=== PATIENT | female | born 1990 | race Hispanic/Latino ===

== ENCOUNTER 2017-12-04 09:20 | Day surgery (SDC) | payer OTHER ==
[2017-12-04 10:13] VITALS: BMI 48.2
[2017-12-04] MEDS ORDERED: Sodium Chloride For Inhalation 0.9% 3 ML NEB ONE (10:58)
[2017-12-04] MEDS ORDERED: Lidocaine 2% 10 ML INJ ONE (10:58)
[2017-12-04] MEDS ORDERED: Sodium Chloride 0.9% 0 ML ONE (10:58)
--- NOTE | 2017-12-04 11:01 | PDOC.LDHP ---
Labor and Delivery H&P Chief complaint: other (RUQ pain) HPI: 27 [id number] @ 24.5 WGA by 8.4 wk US presents with acute onset of RUQ and right flank pain that woke her up from sleep at 0430 this morning. States that the pain is constant, non-radiating, and a 6/10 at its worse. Aggravated by position changes such as sitting up or leg raises. She has not had much of an appetite today so is not sure if the pain worsens with eating. Admits to mild nausea but states that this is baseline for her during this ; denies vomiting, fevers, or chills. Denies hematuria, dysuria, increased frequency, or cloudy/foul smelling urine; however, she does state that over the past week, she has experienced mild, sharp pains in her lower back only with voiding. No sick contacts, no history of trauma. She still has both her gallbladder and appendix. No history of kidney stones or similar symptoms. She did have a UTI back in August that was treated but denies h/o recurrent UTIs. Denies VB, LOF , discharge, pelvic pain, or decreased movement. Of note, the patient has what sounds like persistent, uncontrolled asthma and has to use her inhaler at least 4x per day. States that over the past couple of weeks, she has had increased wheezing and cough. Last week, she took a 5 day course of prednisone that she had on hand at home with mild improvement of symptoms. No one currently manages her asthma; she is not currently on any long-acing inhaler, although she says that she has been tried on multiple different types of long acting inhalers in the past without any improvement in her symptoms. Current gestational age (weeks): 24 (5) Due date: 03/21/18 Dating criteria: first trimester ultrasound (8.4 wk) Grav: 4 Para: 1 Current complications: other (BMI 41) Abnormal US findings: No (per patient) Current medications: pre-giovani vitamins, other (albuterol inhaler) Previous surgical history: low tranverse CS (x1) Social history: none - Physical Exam General: NAD, resting Heart: RRR Lungs: nonlabored breathing Abdomen: other (TTP RUQ over lower ribs; Carnett's sign positive) Extremeties: no edema - OB Labs Blood type: O RH: positive Antibody Screen: negative HIV: negative RPR: negative HEPSAg: negative 1 hour GCT: unknown (not yet done) Rubella: immune - Assessment 27 yo F @ 24.5 wks by 1T US w/: - Plan -: 1) PTSIUP -continue routine care; no evidence of labor at this time 2) Pleuritic pain v. chostochondritis v. less likely nephrolithiasis or ascending UTI -UA pending; if negative, will likely be able to send home with conservative treatment (tylenol, ice/heat, IS?) and short f/u with [facility] next week -No evidence of an intra-abdominal process at this time; will defer further imaging for now and discuss return precautions prior to discharge 3) Uncontrolled asthma -Would recommend physician at [facility] or PCP start her on inhaled corticosteroid and /or singulair 4) BMI 41 5) ASCUS with HR HPV -will need f/u <Kofi Adams - Last Filed: 12/04/17 10:46> <Jerome Miller - Last Filed: 12/04/17 13:01> Allergies/Adverse Reactions: Allergies Allergy/AdvReac Type Severity Reaction Status Date / Time No Known Allergies Allergy Unverified 12/04/17 10:01 Attending Addendum - Attending Addendum Date/Time: 12/04/17 1300 I evaluated the patient and discussed the management with Dr. Adams. I agree with the History, Examination, Assessment and Plan. <Jerome Miller - Last Filed: 12/04/17 13:01>
[2017-12-04 11:04] LABS: Bilirubin Negative (Negative); Blood, Urine Negative (Negative); Clarity CLEAR (Clear); Glucose, Urine (Dipstick) Negative (Negative); Leukocyte Negative (Negative); Nitrite Negative (Negative); Protein, Urine (Dipstick) Negative (Neg-Trace); Specific Gravity, Urine 1.014 (1.002-1.036); Urobilinogen 0.2 mg/dL (0.2-1.0)
[2017-12-04 11:07] LABS: Bacteria/HPF Rare-Few HPF (None Seen); Hyaline Casts/LPF 0-3 HYALINE CAST LPF (0-3 Hyaline); Pathc Cast-AUWi Flag 0.14 (0-2.49); RBC/HPF 0-3 HPF (0-3); Squamous Epithelial 0-3 HPF (0-3); WBC/HPF 0-3 HPF (0-3)
== END 2017-12-04 12:04 | disposition home or self-care (01) ==
LOC: L&D/OP 09:20
PROVIDERS: ATTEND Obstetrics & Gynecology
DX: O99.89 Other specified diseases and conditions complicating pregnancy, childbirth and the puerperium (principal); R10.11 Right upper quadrant pain; O99.512 Diseases of the respiratory system complicating pregnancy, second trimester; J45.30 Mild persistent asthma, uncomplicated; O34.42 Maternal care for other abnormalities of cervix, second trimester; R87.610 Atypical squamous cells of undetermined significance on cytologic smear of cervix (ASC-US); Z79.899 Other long term (current) drug therapy; Z3A.24 24 weeks gestation of pregnancy
CPT/HCPCS: 81001; 99282

== ENCOUNTER 2018-03-07 21:21 | Day surgery (SDC) | payer OTHER ==
[2018-03-07 21:57] VITALS: BP 134/58; TEMP 99; BMI 53.8
--- NOTE | 2018-03-08 01:46 | PRG ---
OB ED NOTE DATE OF SERVICE: 03/07/2018 TIME OF SERVICE: 2300 hours PRESENTING COMPLAINT: Abdominal pain. HISTORY OF PRESENT ILLNESS: Ms. Foy is a 27-year-old 4, para 1, AB 2 with EDC of 03/21, pl acing her at 38 weeks gestation with previous . She presents reporting abdominal pain that is rather constant in nature. No bleeding, active fetus, and no rupture of membranes. She is seen a t the Clinic by the [employer]. 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 She denies gestational diabetes or any complications with this . She is uncertain about a trial of labor. Antepartum labs are not on her record on the unit. PAST MEDICAL HISTORY: Obesity. PAST SURGICAL HISTORY: . ALLERGIES: Denies. MEDICATIONS: vitamins. SOCIAL HISTORY: Denies tobacco, alcohol, or drug use. FAMILY HISTORY: Noncontributory. REVIEW OF SYSTEMS: Noncontributory. PHYSICAL EXAMINATION: GENERAL: A female, greater than 350 pounds. VITAL SIGNS: Blood pressure 118/72, temperature 98.5, respirations 18. HEENT: Within normal limits. LUNGS: Clear to auscultation bilaterally. HEART: Regular rhythm. ABDOMEN: Soft and nontender without palpable contractions. PELVIC: Vulva is without lesions. Vagina discharge. Cervix is closed, long, and high. EXTREMITIES: Without clubbing, cyanosis, or edema. heart rate monitoring was carried out for greater than an hour while heart rate could not be obtained for the entire time continuously secondary to the patient's morbid obesity. Greater leo n 20 minutes of heart rate tracing was obtained, which revealed a reactive category 1 tracing. No contractions were noted. IMPRESSION: Discomforts of . No evidence of active labor at 38 weeks gestation, previous C -section x1, morbid obesity, and uncertain plans for trial of labor after . PLAN: Patient will be discharged home. She is to keep scheduled follow up in 2 days at [facility] with ER precautions.
== END 2018-03-07 23:10 | disposition home or self-care (01) ==
LOC: L&D/OP 21:21
PROVIDERS: ATTEND Obstetrics & Gynecology
DX: O99.89 Other specified diseases and conditions complicating pregnancy, childbirth and the puerperium (principal); R10.9 Unspecified abdominal pain; O99.213 Obesity complicating pregnancy, third trimester; E66.01 Morbid (severe) obesity due to excess calories; Z68.43 Body mass index [BMI] 50.0-59.9, adult; Z79.899 Other long term (current) drug therapy; Z3A.38 38 weeks gestation of pregnancy

== ENCOUNTER 2018-03-16 07:45 | Inpatient (IN) | payer MEDICAID, OTHER ==
--- NOTE | 2018-03-15 17:48 | PDOC.LDHP ---
Labor and Delivery H&P Chief complaint: scheduled section (repeat) HPI: 27 yo @ 39.2wks presents for a repeat section. Denies VB, LOF, discharge. Endorses good movement. Current gestational age (weeks): 39 (39.2wks) Due date: 03/21/18 Dating criteria: first trimester ultrasound (8.4wk sono) Grav: 4 Para: 1 (1021) OB History Details: 12/14/2009 42 wks CS [facility] for late term. 7 lbs 10 ounces female. Vertical skin incision. Unknown uterine incision. Abnormal US findings: No (Hadlock 91% (~8 lbs) on 03/02/2018 with anterior placenta) Past Medical History: Asthma Hx of chlamydia on 1T labs treated with JUNA negative. Morbid obesity (BMI 54) ASCUS, HR HPV + Glucose Intolerance, normal 3h GTT Current medications: pre- vitamins, other (albuterol inh prn) Previous surgical history: other (prior CS, unknown uterine incision) Social history: none - Physical Exam Vital signs reviewed and normal: yes General: NAD Heart: RRR Lungs: CTAB Abdomen: gravid Extremeties: no edema FHT: category 1 - OB Labs Blood type: O RH: positive Antibody Screen: negative HIV: negative RPR: negative HEPSAg: negative 1 hour GCT: positive 3 hour GTT: normal GBS: negative Rubella: immune Additional Labs: Hep C negative Quant Gold negative TSH 1.4 Hba1c 4.7 - Assessment L&D Assessment: scheduled repeat section A/P: 27 yo @ 39.2wks admitted for repeat scheduled section. 1.)sIUP-admit for repeat CS. Obtain consent. Consult anesthesia. Pt has documented anterior placenta and female fetus measuring @ 91% by hadlock on 03/02. Obtain labs and ancef prior to section. 2.)Morbid obesity 3.)Prior CS-skin incision vertical, unknown hysterotomy 4.)Hx of chlamydia, treated, with JUAN negative 5.)Glucose intolerance-failed 1 Hr, 3H GTT wnl - Plan Plan: to OR for section, informed consent obtained, anesthesia consult for pain management <Razia Ibarra - Last Filed: 03/16/18 08:52> <Pradeep,Kenneth A - Last Filed: 03/16/18 12:18> Allergies/Adverse Reactions: Allergies Allergy/AdvReac Type Severity Reaction Status Date / Time No Known Allergies Allergy Verified 03/16/18 08:59 Attending Addendum - Attending Addendum Date/Time: 03/16/18 1217 I personally evaluated the patient and discussed the management with Dr. Sanchez and Raad. I agree with the History, Examination, Assessment and Plan documented above with any addition or exceptions noted below. <Kenneth Fernández A - Last Filed: 03/16/18 12:18>
[~2018-03-16 07:45] MED LIST: Bicitra 30 ML UDCUP PO SCH; CEFAZOLIN/Water 2 GM/20 ML SYRINGE SLOW IVP SCH; Ondansetron HCl/PF 4 MG/2 ML Vial IVP PRN; Promethazine HCl 25 MG/ML VIAL IM PRN
[2018-03-16] MEDS ORDERED: PROVENTIL INHALER 6.7 G (200 INHALATIONS) INH PRN (08:15)
[2018-03-16 08:35] LABS: Hemoglobin 13.9 g/dL (12.0-16.0); Mean Corpuscular HGB CONC 34.7 g/dL (32.0-36.0); Mean Corpuscular Volume 83.5 fL (78.0-98.0); Mean Platelet Volume 7.8 fL (7.4-10.4); Platelet Count 218 thou/uL (130-400); RBC Distribution Width 14.4 % (11.5-14.5); White Blood Cell (WBC) Count 10.8 thou/uL (4.8-10.8)
[2018-03-16 08:59] VITALS: BMI 51.4
[2018-03-16 09:13] LABS: Syphilis Antibody Nonreactive (Nonreactive); Syphilis Antibody Index 0.09 S/CO (<1.00 Non-Reactive)
[2018-03-16 09:14] LABS: HBSAg Index 0.14 S/CO (0-0.99); Hep B Surf Ag Non-Reactive S/CO (NonReactive)
[2018-03-16] MEDS ORDERED: Morphine PF 1 MG/ML SYR ONE (09:19)
[2018-03-16] MEDS ORDERED: Oxytocin 10 UNITS/ML VIAL ONE (09:21)
[2018-03-16] MEDS ORDERED: Lidocaine 1% PF 5 ML VIAL ONE ×2 (09:21→10:00)
[2018-03-16] MEDS ORDERED: ePHEDrine/0.9% NaCl/PF SYRINGE 50 mg/10 ml ONE (09:21)
[2018-03-16] MEDS ORDERED: Bupivacaine 0.75% W/DEXTROSE 8.25% 2 ML AMP ONE (09:21)
[2018-03-16] MEDS ORDERED: PHENYLEPHRINE-NS 100 MCG/ML 10 ML SYRINGE ONE (09:21)
[2018-03-16] MEDS ORDERED: Lidocaine 2% PF Inj 2 ML VIAL ONE (09:21)
[2018-03-16] MEDS ORDERED: Ketorolac Tromethamine 30 MG/ML VIAL ONE (09:21)
[2018-03-16] MEDS ORDERED: Ondansetron HCl/PF 4 MG/2 ML Vial ONE (09:25)
[2018-03-16] MEDS ORDERED: diphenhydrAMINE 50 MG/ML VIAL IVP PRN (10:25)
[2018-03-16] MEDS ORDERED: Naloxone HCl 0.4 mg/ml Vial IVP PRN ×2 (10:25)
[2018-03-16] MEDS ORDERED: Naloxone HCl 0.4 mg/ml Vial IV PRN (10:25)
[2018-03-16] MEDS ORDERED: Promethazine HCl 25 MG/ML VIAL IM PRN (10:25)
[2018-03-16] MEDS ORDERED: Ketorolac Tromethamine 30 MG/ML VIAL IVP PRN (10:25)
[2018-03-16] MEDS ORDERED: Eucerin (Mineral Oil/Petrolatum,White) 30 gm Jar TOP PRN (10:25)
[2018-03-16] MEDS ORDERED: Ondansetron HCl/PF 4 MG/2 ML Vial IVP PRN (10:25)
[2018-03-16] MEDS ORDERED: Promethazine HCl 25 MG SUPP PR PRN (10:25)
[2018-03-16] MEDS ORDERED: Communication Order-Pharmacy FS SCH (10:30)
[2018-03-16] MEDS ORDERED: Fentanyl 100 MCG/2 ML VIAL ONE (10:38)
[2018-03-16] MEDS ORDERED: Sodium Chloride 0.9% 10 ML ONE (10:40)
[2018-03-16] MEDS ORDERED: Promethazine HCl 25 MG/ML VIAL ONE (10:40)
[2018-03-16] MEDS: Prenatal Vitamin 1 TAB PO SCH (10:45)
[2018-03-16] MEDS ORDERED: Lanolin Ointment 7 GM TUBE TOP PRN (13:57)
[2018-03-16] MEDS ORDERED: diphenhydrAMINE 25 MG CAP PO PRN (13:57)
[2018-03-16] MEDS: Ibuprofen 800 MG TAB PO SCH ×2 (14:23→23:59)
[2018-03-16] MEDS ORDERED: NS / Oxytocin 40 units/1000ml 1,000 ML IV SCH (14:30)
--- NOTE | 2018-03-16 15:33 | PDOC.EVN ---
Event Note - Event Note Event Note: Evaluated the patient 5 hours post-op. S: Patient reports that she has regained the feeling in her abdomen and legs. She reports some pain when she moves, but otherwise her pain is minimal. She reports some vaginal bleeding. She denies any CP, SOB. She ate some clear liquids for lunch and tolerated that without any nausea or vomiting. She has not ambulated yet and still has the hanley in place. O: Gen - alert, oriented, NAD Abd: fundus firm 2 cm below the umbilicus, appropriately TTP. Skin: dressing in place over incision, c/d/i Ext: SCD's in place, no edema A/P: 1. TIUP delivered via rLTCS, POD#0 -continue routine post- care. -Ibuprofen and norco for pain control -Encourage ambulation once tolerated -d/c hanley once ambulating -Tolerating clears, ADAT
--- NOTE | 2018-03-16 19:30 | PDOC.OPDEL ---
OB Operative/Delivery Note - Additional Findings/Plan Compilations/Other Findings: Resident Surgeon: Fred Shankar Tile Professional Surgeon: Laura Attending Surgeon: Pradeep Procedure: Repeat low transverse caesarean section Preoperative Diagnosis: 1)Term intrauterine 2)Previous 3)Morbid Obesity Postoperative Diagnosis: 1)Term intrauterine 2)Previous 3)Morbid Obesity Anesthesia: spinal Indications: The patient is a 27 year old G4,P1021 female at 39.2wks gestation who presents for a repeat scheduled . Procedure in Detail: After risks, benefits, and alternatives were explained to the patient, she gave informed consent. Pre-operative antibiotics included Cefazolin 2 gram IV. The patient was taken to the operating room and spinal anesthesia was initiated. She was placed in the supine position with a left tilt and prepped and draped in usual sterile fashion. A Pfannenstiel incision was made with a scalpel and carried down to the level of the fascia which was sharply nicked. The fascial cut was extended bilaterally with Leyva sissors. The inferior and superior edges of the cut fascial edges were elevated with Orlando clamps and the underlying rectus muscles were sharply and bluntly dissected free. The recti were divided digitally and retracted manually. The peritoneum was entered bluntly and retracted manually. The Anthony Retractor was placed. A low transverse score was made with the scalpel and the uterus was entered in the midline with the scalpel. Clear fluid was seen. The hysterotomy was extended manually. The infant was noted to be vertex and was delivered by fundal pressure and found to have a nuchal cord X 2. Mouth and nares were bulb suctioned. Cord clamped and cut and grossly normal female was handed to waiting nurse. Placenta was manually extracted, found to be intact with 3 vessel cord and discarded. The endometrium was curetted with a dry lap. The uterus was closed with a running locking #1 Monocryl suture. A figure of eight stitch using 2-0 Chromic was provided at the left egde of the hysterotomy. Following this hemostasis was noted. The fascia was closed with a running non-locking 0-Vicryl suture. The subcutaneous tissue was irrigated and there were no bleeders. The subcutaneous tissue was closed with a running nonlocking 2-0 plain suture. The skin was approximated with robin and a pressure dressing was placed. All counts were correct. The patient tolerated the procedure well and was taken to the recovery room in stable condition. Estimated Blood Loss: 738 ml Complications: None Findings: Grossly normal female infant with Apgars of 8 and 9. Grossly normal placenta with 3 vessel cord discarded. Drains: Barnes to gravity draining clear urine with UOP: 500ml
[2018-03-16] MEDS ORDERED: HYDROcodone/Acetaminophen 5/325 mg Tablet PO PRN (22:30)
[2018-03-16] MEDS: Docusate Calcium (SURFAK) 240 MG CAP PO SCH (23:57)
[2018-03-16] MEDS: Ferrous Sulfate 325 MG TAB PO SCH (23:57)
[2018-03-17] MEDS: Simethicone Chewable 80 MG TAB PO PRN ×2 (00:24→17:10)
[2018-03-17 05:30] LABS: Hemoglobin 10.7 g/dL (12.0-16.0); Mean Corpuscular HGB CONC 34.2 g/dL (32.0-36.0); Mean Corpuscular Hemoglobin 28.9 pg (27.0-31.0); Mean Corpuscular Volume 84.7 fL (78.0-98.0); Mean Platelet Volume 8.1 fL (7.4-10.4); Platelet Count 179 thou/uL (130-400); RBC Distribution Width 14.3 % (11.5-14.5); Red Blood Cell (RBC) Count 3.69 mill/uL (4.20-5.40); White Blood Cell (WBC) Count 9.2 thou/uL (4.8-10.8)
--- NOTE | 2018-03-17 07:19 | PDOC.PP ---
Post Progress Note Post Day #: 1 Subjective: 27 yo now 2021 at 39.2wks s/p repeat LTCS yesterday at 1029, delivered a LGA female infant. Pt did well overnight. No acute events. Tolerating normal diet and ambulating this am. PO intake tolerated: yes Flatus: no Ambulation: no Vital Signs (12 hours) Temp Pulse Resp BP 03/17/18 04:20 99.0 F 86 20 108/54 L 03/17/18 02:00 20 03/17/18 00:15 98.9 F 99 18 107/55 L 03/16/18 22:20 20 03/16/18 20:30 97.6 F 85 20 121/60 Weight Weight 146.964 kg - Physical Examination General: NAD Cardiovascular: no m/r/g, RRR Respiratory: clear to auscultation bilaterally Abdominal: + bowel sounds, lochia, appropriately TTP Fundus firm & at: umbilicus Skin: CS incision dry & intact Neurological: no gross focal deficits Psychiatric: A&Ox3 Result Diagrams: 03/17/18 04:42 Additional Labs: Post Labs Blood Type O POSITIVE 03/16/18 08:12 Hep Bs Antigen Non-Reactive S/CO (NonReactive) 03/16/18 08:12 (1) Term delivered Code(s): O80 - ENCOUNTER FOR FULL-TERM UNCOMPLICATED DELIVERY Status: Acute (2) delivery, delivered, current hospitalization Code(s): O82 - ENCOUNTER FOR DELIVERY WITHOUT INDICATION Status: Acute (3) Obesity Code(s): E66.9 - OBESITY, UNSPECIFIED Status: Acute (4) Glucose intolerance Code(s): E74.39 - OTHER DISORDERS OF INTESTINAL CARBOHYDRATE ABSORPTION Status : Acute - Assessment/Plan 27 yo now 2021 s/p repeat LTCS yesterday @ 39.2wks 2/2 prior section. 1)term sIUP 2)s/p repeat CS 3)obesity 4)Glucose intolerance Plan: -Continue ibuprofen heladio and norco prn pain control -Encourage ambulation, ADAT, monitor I/Os -Incision, clean dry and intact; okay to remove pressure dressing -Consider dc tomorrow vs Wednesday with follow-up in two weeks. <Razia Ibarra - Last Filed: 03/17/18 07:35> Vital Signs (12 hours) Temp Pulse Resp BP 03/17/18 12:02 98.9 F 86 20 102/52 L 03/17/18 07:50 98.7 F 81 20 99/53 L Weight Weight 146.964 kg Result Diagrams: 03/17/18 04:42 Additional Labs: Post Labs Blood Type O POSITIVE 03/16/18 08:12 Hep Bs Antigen Non-Reactive S/CO (NonReactive) 03/16/18 08:12 <Kenneth Fernández - Last Filed: 03/17/18 17:16> Attending Addendum - Attending Addendum Date/Time: 03/17/18 0871 I personally evaluated the patient and discussed the management with Dr. Sanchez. I agree with the History, Examination, Assessment and Plan documented above with any addition or exceptions noted below. <Kenneth Fernández - Last Filed: 03/17/18 17:16>
[2018-03-17] MEDS ORDERED: Adacel (T-DAP) 0.5 ML VIAL IM ONE (09:00)
[2018-03-17] MEDS: Prenatal Vitamin 1 TAB PO SCH (09:24)
[2018-03-17] MEDS: Ibuprofen 800 MG TAB PO SCH ×3 (09:24→23:51)
[2018-03-17] MEDS: Docusate Calcium (SURFAK) 240 MG CAP PO SCH ×2 (09:24→21:41)
[2018-03-17] MEDS: HYDROcodone/Acetaminophen 5/325 mg Tablet PO PRN (09:25)
[2018-03-17] MEDS: Ferrous Sulfate 325 MG TAB PO SCH ×2 (09:28→21:48)
[2018-03-18] MEDS: HYDROcodone/Acetaminophen 5/325 mg Tablet PO PRN ×2 (05:07→16:01)
--- NOTE | 2018-03-18 07:12 | PDOC.PP ---
Post Progress Note Post Day #: 2 Subjective: 27 yo now 2022 s/p rLTCS on 03/17. No acute events overnight. Complains of gas pain this am. Says she passed flatus yesterday. Otherwise, pt is ambulating, tolerating normal diet, and pain is controlled. PO intake tolerated: yes Flatus: yes Ambulation: yes Vital Signs (12 hours) Temp Pulse Resp BP 03/18/18 04:50 98.3 F 83 20 114/57 L 03/18/18 00:10 97.7 F 92 20 114/54 L 03/17/18 20:15 98.0 F 84 20 129/58 L Weight Weight 146.964 kg - Physical Examination General: NAD Cardiovascular: no m/r/g, RRR Respiratory: clear to auscultation bilaterally Abdominal: + bowel sounds, lochia (minimal), appropriately TTP Fundus firm & at: umbilicus - 2 Skin: CS incision dry & intact, no rash Neurological: no gross focal deficits Result Diagrams: 03/17/18 04:42 Additional Labs: Post Labs Blood Type O POSITIVE 03/16/18 08:12 Hep Bs Antigen Non-Reactive S/CO (NonReactive) 03/16/18 08:12 (1) Term delivered Code(s): O80 - ENCOUNTER FOR FULL-TERM UNCOMPLICATED DELIVERY Status: Acute (2) delivery, delivered, current hospitalization Code(s): O82 - ENCOUNTER FOR DELIVERY WITHOUT INDICATION Status: Acute (3) Obesity Code(s): E66.9 - OBESITY, UNSPECIFIED Status: Acute (4) Glucose intolerance Code(s): E74.39 - OTHER DISORDERS OF INTESTINAL CARBOHYDRATE ABSORPTION Status : Acute - Assessment/Plan 27 yo now P2022 s/p rLTCS on 03/17 at 39.2wks. #Term, SIUP delivered #s/P rLTCS #Obesity #post op gas pains - scheduled simethacone qid and docusate bid. Continue routine care. Pt needs robin out possibly tomorrow. Encourage ambulation. Ibuprofen heladio and norco prn pain. <Razia Ibarra - Last Filed: 03/18/18 12:18> Vital Signs (12 hours) Temp Pulse Resp BP Pulse Ox 03/19/18 07:37 98.6 F 93 18 130/56 L 98 Weight Weight 146.964 kg Result Diagrams: 03/17/18 04:42 Additional Labs: Post Labs Blood Type O POSITIVE 03/16/18 08:12 Hep Bs Antigen Non-Reactive S/CO (NonReactive) 03/16/18 08:12 <Kenneth Fernández - Last Filed: 03/19/18 08:54> Attending Addendum - Attending Addendum Date/Time: 03/19/18 0854 I personally evaluated the patient and discussed the management with Dr. Ibarra yesterday. I agree with the History, Examination, Assessment and Plan documented above with any addition or exceptions noted below. <Kenneth Fernández - Last Filed: 03/19/18 08:54>
[2018-03-18] MEDS ORDERED: Simethicone Chewable 80 MG TAB PO SCH (07:45)
[2018-03-18] MEDS ORDERED: Fluticasone Propionate HFA 220 MCG AER INH SCH (09:00)
[2018-03-18] MEDS: Prenatal Vitamin 1 TAB PO SCH (09:01)
[2018-03-18] MEDS: Simethicone Chewable 80 MG TAB PO SCH ×4 (09:01→22:23)
[2018-03-18] MEDS: Ferrous Sulfate 325 MG TAB PO SCH ×2 (09:01→23:04)
[2018-03-18] MEDS: Docusate Calcium (SURFAK) 240 MG CAP PO SCH ×2 (09:01→20:43)
[2018-03-18] MEDS: Ibuprofen 800 MG TAB PO SCH ×3 (09:05→22:22)
[2018-03-18] MEDS: Fluticasone Propionate HFA 220 MCG AER INH SCH (19:17)
[2018-03-19] MEDS: Ibuprofen 800 MG TAB PO SCH ×2 (05:13→13:48)
[2018-03-19 07:39] VITALS: BP 130/56; TEMP 98.6
[2018-03-19] MEDS: Fluticasone Propionate HFA 220 MCG AER INH SCH (07:50)
[2018-03-19] MEDS: Simethicone Chewable 80 MG TAB PO SCH ×3 (09:00→17:21)
[2018-03-19] MEDS: Ferrous Sulfate 325 MG TAB PO SCH (09:00)
[2018-03-19] MEDS: Docusate Calcium (SURFAK) 240 MG CAP PO SCH (09:00)
[2018-03-19] MEDS: Prenatal Vitamin 1 TAB PO SCH (09:00)
--- NOTE | 2018-03-19 09:05 | PDOC.PP ---
Post Progress Note Post Day #: 3 Subjective: No acute events overnight. Having mild abdominal pain due to gas. Denies significant pain, drainage, redness at site. Denies fever, chills. Voiding, ambulating, tolerating regular diet, but pending B.M. PO intake tolerated: yes Flatus: yes Ambulation: yes Vital Signs (12 hours) Temp Pulse Resp BP Pulse Ox 03/19/18 07:37 98.6 F 93 18 130/56 L 98 Weight Weight 146.964 kg - Physical Examination General: NAD Cardiovascular: RRR Respiratory: clear to auscultation bilaterally, non-labored breathing Abdominal: no distention, appropriately TTP Skin: CS incision dry & intact Psychiatric: A&Ox3, normal affect Result Diagrams: 03/17/18 04:42 Additional Labs: Post Labs Blood Type O POSITIVE 03/16/18 08:12 Hep Bs Antigen Non-Reactive S/CO (NonReactive) 03/16/18 08:12 - Assessment/Plan 27 yo now P2022 s/p rLTCS on 03/17 at 39.2wks. 1. Term, SIUP delivered, s/P rLTCS -ambulating, voiding well -AVSS -incision site healing well-no signs of infection- will take out robin today and apply steri strips 2.Obesity -counseled f/u for lifestyle mgmt outpt 3. post op gas pains -Likely due to slow transit from narcotic pain meds -Will continue to give simethacone qid and docusate bid. Will add on senekot bid. Continue routine care dispo: d/c today, will send home w/ motrin and tylenol. f/u with dr. peters in 2 weeks. <Radha Sanchez - Last Filed: 03/19/18 09:03> Weight Weight 146.964 kg Result Diagrams: 03/17/18 04:42 Additional Labs: Post Labs Blood Type O POSITIVE 03/16/18 08:12 Hep Bs Antigen Non-Reactive S/CO (NonReactive) 03/16/18 08:12 <Kenneth Fernández - Last Filed: 03/20/18 09:52> Attending Addendum - Attending Addendum Date/Time: 03/20/18 0952 I personally evaluated the patient and discussed the management with Dr. Sanchez yesterday. I agree with the History, Examination, Assessment and Plan documented above with any addition or exceptions noted below. <Kenneth Fernández - Last Filed: 03/20/18 09:52>
[2018-03-19] MEDS ORDERED: Senokot 8.6 MG TAB PO SCH (09:15)
[2018-03-19] MEDS: HYDROcodone/Acetaminophen 5/325 mg Tablet PO PRN (18:37)
== END 2018-03-19 18:40 | disposition home or self-care (01) | DRG 765 ==
LOC: L&D 07:45 → 3SW 13:39
PROVIDERS: ADMIT Family Medicine; ATTEND Family Medicine
PROC: 10D00Z1 Extraction of Products of Conception, Low, Open Approach (ICD-10-PCS; principal; 2018-03-16)
DX: O34.211 Maternal care for low transverse scar from previous cesarean delivery (principal); Z68.43 Body mass index [BMI] 50.0-59.9, adult; Z3A.39 39 weeks gestation of pregnancy; Z37.0 Single live birth; O99.214 Obesity complicating childbirth; E66.01 Morbid (severe) obesity due to excess calories; O69.81X0 Labor and delivery complicated by cord around neck, without compression, not applicable or unspecified; O99.52 Diseases of the respiratory system complicating childbirth; J45.909 Unspecified asthma, uncomplicated; O99.814 Abnormal glucose complicating childbirth
CPT/HCPCS: 36415; 51702; 76815; 85027; 86780; 86850; 86900; 86901; 87340; J1200; J1885; J2001; J2274; J2405; J2550; J2590; J3010; J3490

== ENCOUNTER 2021-10-10 18:54 | Emergency (ER) | payer BC, OTHER | END 2021-10-10 19:32 | disposition home or self-care (01) | LOC: ERS 18:54 | DX: L60.0 Ingrowing nail (principal); J45.909 Unspecified asthma, uncomplicated | CPT/HCPCS: 99283 ==